=== PATIENT | female | born 1965 | race African-American/Black ===

== ENCOUNTER 2016-03-24 09:11 | Emergency (ER) | payer BC, OTHER ==
[2016-03-24] MEDS ORDERED: DILAUDID 1 MG/ML AMP ONE (12:05)
[2016-03-24] MEDS ORDERED: METHYLPRED SOD SUCC 125 MG/2 ML VIAL ONE (12:05)
== END 2016-03-24 16:32 | disposition home or self-care (01) ==
LOC: ER 09:11
DX: M94.0 Chondrocostal junction syndrome [Tietze] (principal)
CPT/HCPCS: 36415; 71010; 80053; 82550; 82553; 84484; 85025; 85610; 85730; 93005; 96374; 96375